=== PATIENT | female | born 1985 | race Hispanic/Latino ===

== ENCOUNTER 2017-01-07 00:22 | Emergency (ER) | payer OTHER ==
[~2017-01-07] VITALS: Ht 165.1 cm; Wt 65.8 kg
[~2017-01-07 00:22] MED LIST: AUGMENTIN 875-1 EACH PO; MOTRIN 800MG T800 MG PO; MOTRIN800 MG PO; PERCOCET 325 MG1 TA2 PO; PERCOCET 5-3251 EACH PO; PRENATAL1 TA2 PO
[2017-01-07 00:30] VITALS: BP 130/83
--- NOTE | 2017-01-07 00:32 | ED GENERAL ADULT ---
History of Present Illness General Chief Complaint: General Adult Stated Complaint: "PER EMS PT HAS ANXIETY" Source: patient, family Exam Limitations: no limitations Vital Signs & Intake/Output Vital Signs & Intake/Output Vital Signs Date Time Temp Pulse Resp B/P B/P Pulse O2 O2 Flow FiO2 Mean Ox Delivery Rate 01/07 0032 Room Air 01/07 0030 97.6 89 18 130/83 100 Room Air Allergies Coded Allergies: NO KNOWN ALLERGIES (04/20/13) Reconcile Medications Lorazepam (Ativan) 0.5 MG TABLET 1 TAB PO BIDP PRN anxiety/grief five... [id number] Triage Note: PT BIBA FROM HOME S/P WAKING UP OUT OF SLEEP FEELING "ANXIOUS." PER EMS PT FATHER YESTERDAY. Triage Nurses Notes Reviewed? yes Onset: Abrupt Duration: hour(s): Timing: single episode today Injury Environment: home Severity: moderate Modifying Factors: Improves With: rest. Associated Symptoms: anxiety : No Patient currently breastfeeds: No HPI: 31-year-old woman in prior good health presents feeling anxious and, "out of it. " The medics note that her father yesterday and received ACLS at home and then [facility] emergency room. She states that she feels anxious, "stressed, " and can't sleep. She denies suicidality, homicidality, hallucinations. She denies alcohol intake. She states that since arriving in the emergency department she started to feel better. Past History Travel History Traveled to [place] past 21 day No Medical History Any Pertinent Medical History? see below for history Neurological: NONE EENT: NONE Cardiovascular: NONE Respiratory: NONE Gastrointestinal: NONE Hepatic: NONE Renal: NONE Musculoskeletal: CHRONIC LOW BACK PAIN. 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 No Review of Systems Review of Systems Constitutional: Reports: no symptoms. EENTM: Reports: no symptoms. Respiratory: Reports: no symptoms. Cardiovascular: Reports: no symptoms. GI: Reports: no symptoms. Genitourinary: Reports: no symptoms. Musculoskeletal: Reports: no symptoms. Skin: Reports: no symptoms. Neurological/Psychological: Reports: no symptoms. Hematologic/Endocrine: Reports: no symptoms. Immunologic/Allergic: Reports: no symptoms. All Other Systems: Reviewed and Negative Physical Exam Physical Exam General Appearance: well developed/nourished, mild distress Head: atraumatic, normal appearance Eyes: Bilateral: normal appearance. Ears, Nose, Throat: normal pharynx, normal ENT inspection Neck: normal inspection, supple, full range of motion Respiratory: normal breath sounds, chest non-tender, no respiratory distress, quiet respiration, lungs clear Cardiovascular: regular rate/rhythm Gastrointestinal: normal bowel sounds, soft, non-tender, no organomegaly Back: normal inspection Extremities: normal inspection Neurologic/Psych: no motor/sensory deficits, awake, oriented x 3, slightly anxious affect Skin: intact, normal color, warm/dry Core Measures ACS in differential dx? No CVA/TIA Diagnosis: No Severe Sepsis Present: No Septic Shock Present: No Progress Differential Diagnoses I considered the following diagnoses in my evaluation of the patient: Acute grief first panic attack versus chronic anxiety versus depression versus other Plan of Care: Patient declined medications in the emergency department. After approximate 1.5 hours, she felt calmer, more composed. She felt comfortable going home. I referred her to [facility]. I sent a prescription for Ativan 0.5 mg to take should her symptoms recur as needed. Initial ED EKG: none Departure Departure Disposition: HOME OR SELF CARE Condition: Stable Clinical Impression Primary Impression: Panic attack Secondary Impressions: Brief or acute posttraumatic stress disorder Referrals: HORTENCIA WING APRN (PCP/Family) Departure Forms: Customer Survey General Discharge Information Prescriptions: Current Visit Scripts Lorazepam (Ativan) 1 TAB PO BIDP PRN anxiety/grief #5 TAB five... [id number] Critical Care Note Critical Care Note Critical Care Time: non-applicable
[2017-01-07] MEDS ORDERED: ATIVAN0.5 M1 PO (02:11)
== END 2017-01-07 02:20 ==
LOC: ERH 00:22
DX: F41.0 Panic disorder [episodic paroxysmal anxiety] (principal); F43.11 Post-traumatic stress disorder, acute